=== PATIENT | male | born 1985 | race Caucasian/White ===

== ENCOUNTER 2021-07-07 14:18 | Emergency (ER) | payer SELFPAY ==
[~2021-07-07] VITALS: Ht 185.4 cm; Wt 95.3 kg
[2021-07-07 14:18] VITALS: BP_SYST 133
--- NOTE | 2021-07-07 14:20 | NUR ---
BROUGHT IN BY LADONNA GRACIA AND PLACED IN HALLWAY BED, TRIAGED AND REPORT GIVEN TO MK
--- NOTE | 2021-07-07 14:30 | NUR ---
Pt bib [employer] for ok to book, reports recent covid exposure and now has a sore throat. No other complaints at this time. V/S stable, no acute distress noted.
--- NOTE | 2021-07-07 14:50 | NUR ---
ER Dr. Boone at bedside examining patient.
--- NOTE | 2021-07-07 16:15 | NUR ---
Patient given written and verbal discharge instructions and verbalizes understanding. ER MD discussed with patient the results and treatment provided. Patient in stable condition. ID arm band removed. No prescription given. Patient educated on pain management and to follow up with PMD. Pain Scale 0. Opportunity for questions provided and answered. Medication side effect fact sheet provided.
[2021-07-07 16:17] VITALS: BP_SYST 133
== END 2021-07-07 16:15 ==
LOC: SED 14:18
DX: B34.9 Viral infection, unspecified (principal); Z20.822 Contact with and (suspected) exposure to COVID-19
CPT/HCPCS: 36415; 99283